=== PATIENT | male | born 1995 | race Caucasian/White ===

== ENCOUNTER 2016-04-02 01:52 | Emergency (ER) | payer BC ==
[2016-04-02] MEDS ORDERED: Ketorolac INJ* 60 MG/2 ML VIAL IM ONE (02:03)
[2016-04-02] MEDS ORDERED: Ibuprofen TAB* 400 MG PO ONE (02:37)
[2016-04-02 03:43] VITALS: BP 144/92
--- NOTE | 2016-04-02 07:37 | RAD ---
INDICATION: Dorsolateral foot and ankle pain 8 hours after a traumatic fall COMPARISON: None. TECHNIQUE: 3 views of the right ankle and 3 views of the right foot were obtained. FINDINGS: Overlying the anterior surface of the talus and/or distal fibula there is a lucent line abutting the anterior cortex. This line is not reproduced in other projections. Otherwise the well corticated bones exhibit normal alignment. Joint spaces appear maintained. IMPRESSION: A LUCENT LINE SEEN OVERLYING THE SUPERIOR ANTERIOR SURFACE OF THE TALUS MIGHT BE A NONDISPLACED FRACTURE. ALTERNATIVELY THIS LINE COULD SIMPLY BE A SKINFOLD OR THE DISTAL MARGIN OF THE NORMAL RIGHT FIBULA. If the patient's symptoms persist, follow-up imaging is recommended.
--- NOTE | 2016-06-01 23:13 | ED ---
I, Kaushal,Lesa, scribed for Dawit Rodgers MD on 04/02/16 at 0241 . Lower Extremity - HPI Summary HPI Summary: This 20 y/o male presents to ED via private transport for acute, throbbing right ankle pain. Pt was helping his friends and was climbing into a big pen when pt rolled his right ankle at 1700 PM. Weight bearing and ambulation make the pain worse. Elevation and ice make the pain better. He is currently denying any PMHx. - History of Current Complaint Chief Complaint: EDExtremityLower Stated Complaint: FALL/RIGHT ANKLE PAIN Time Seen by Provider: 04/02/16 01:59 Hx Obtained From: Patient Mechanism Of Injury: Blunt Trauma Onset of Pain: Immediate Pain Intensity: 6 Pain Scale Used: 0-10 Numeric Timing: Constant Location: Is Discrete @ - right ankle Character Of Pain: Throbbing Associated Signs And Symptoms: Positive: Negative Aggravating Factor(s): Ambulation, Weight Bearing Alleviating Factor(s): Rest, Elevation, Ice Able to Bear Weight: Yes - Allergies/Home Medications Allergies/Adverse Reactions: Allergies Allergy/AdvReac Type Severity Reaction Status Date / Time BEE STINGS Allergy Severe Swelling Uncoded 12/23/14 20:38 PMH/Surg Hx/FS Hx/Imm Hx Endocrine/Hematology History: Denies: Hx Diabetes, Hx Thyroid Disease Cardiovascular History: Denies: Hx Hypertension Respiratory History: Denies: Hx Asthma, Hx Chronic Obstructive Pulmonary Disease (COPD) GI History: Denies: Hx Ulcer Infectious Disease History: No Infectious Disease History: Denies: Hx Clostridium Difficile, Hx Hepatitis, Hx Human Immunodeficiency Virus (HIV), Hx of Known/Suspected MRSA, Hx Shingles, Hx Tuberculosis, Hx Known/ Suspected VRE, Hx Known/Suspected VRSA, History Other Infectious Disease, Traveled Outside the [place] in Last 30 Days - Family History Known Family History: Positive: Hypertension - Social History Alcohol Use: None Hx Substance Use: No Substance Use Type: Reports: None Hx Tobacco Use: Yes Smoking Status (MU): Light Every Day Tobacco Smoker Type: Smokeless Tobacco Review of Systems Negative: Fever Positive: Other - right ankle pain Negative: Anxious, Depressed All Other Systems Reviewed And Are Negative: Yes Physical Exam Triage Information Reviewed: Yes Vital Signs On Initial Exam: Initial Vitals Temp Pulse Resp BP Pulse Ox 98.0 F 90 16 170/99 98 04/02/16 02:05 04/02/16 02:05 04/02/16 02:05 04/02/16 02:05 04/02/16 02:05 Vital Signs Reviewed: Yes Diagnostics - Vital Signs Vital Signs Temp Pulse Resp BP Pulse Ox 04/02/16 02:05 98.0 F 90 16 170/99 98 - Laboratory Lab Statement: Any lab studies that have been ordered have been reviewed, and results considered in the medical decision making process. - Radiology Right foot Xray Interpretation: No Acute Changes Radiology Interpretation Completed By: ED Physician Right ankle Xray Interpretation: No Acute Changes Radiology Interpretation Completed By: ED Physician Lower Extremity Course/Dx - Diagnoses Provider Diagnoses: Right ankle sprain Discharge - Discharge Plan Condition: Stable Disposition: HOME Patient Education Materials: Ankle Sprain (ED), Crutch Instructions (ED) Referrals: Oral Sol MD [Primary Care Provider] - 2 Days The documentation as recorded by the Kaushal mustafa Soohyun accurately reflects the service I personally performed and the decisions made by , Dawit Rodgers MD.
== END 2016-04-02 03:05 | disposition home or self-care (01) ==
LOC: ED 01:52
DX: S93.401A Sprain of unspecified ligament of right ankle, initial encounter (principal); M25.571 Pain in right ankle and joints of right foot; F17.210 Nicotine dependence, cigarettes, uncomplicated; W19.XXXA Unspecified fall, initial encounter; Y93.9 Activity, unspecified; Y92.9 Unspecified place or not applicable
CPT/HCPCS: 99283; J1885

== ENCOUNTER 2017-11-23 13:42 | Emergency (ER) | payer BC ==
[2017-11-23 13:50] VITALS: BP 129/66
--- NOTE | 2017-11-23 14:07 | UC ---
Throat Pain/Nasal Wally HPI - HPI Summary HPI Summary: Patient c/o sore throat and cough for one week. He has been coughing night and day. Sometimes he has sweats at night as well as occasional chills. Cough is mostly dry with occasional scant production of phlegm. He does not have any medical history and has no PCP. He denies history of exposure to smoke/tobacco, denies history of asthma. - History of Current Complaint Chief Complaint: UCGeneralIllness Stated Complaint: SORE THROAT, AND COUGH Time Seen by Provider: 11/23/17 13:54 Hx Obtained From: Patient Onset/Duration: Gradual Onset, Lasting Days Severity: Moderate Pain Intensity: 7 Cough: Nonproductive Associated Signs & Symptoms: Positive: Nasal Discharge - Epiglottits Risk Factors Epiglottis Risk Factors: Negative - Allergies/Home Medications Allergies/Adverse Reactions: Allergies Allergy/AdvReac Type Severity Reaction Status Date / Time BEE STINGS Allergy Severe Swelling Uncoded 11/23/17 13:50 PMH/Surg Hx/FS Hx/Imm Hx Previously Healthy: Yes - Surgical History Surgical History: None - Family History Known Family History: Positive: Hypertension, Other - cancer - Social History Alcohol Use: Occasionally Substance Use Type: None Smoking Status (MU): Never Smoked Tobacco Type: Smokeless Tobacco Have You Smoked in the Last Year: No - Immunization History Vaccination Up to Date: Yes Review of Systems Constitutional: Chills ENT: Sore Throat Respiratory: Cough All Other Systems Reviewed And Are Negative: Yes Physical Exam Triage Information Reviewed: Yes Appearance: Well-Appearing, No Pain Distress, Well-Nourished Vital Signs: Initial Vital Signs Temp 98.3 F 11/23/17 13:46 Pulse 77 11/23/17 13:46 Resp 20 11/23/17 13:46 BP 129/66 11/23/17 13:46 Pulse Ox 97 11/23/17 13:46 Vital Signs Reviewed: Yes Eyes: Positive: Conjunctiva Clear ENT: Positive: Hearing grossly normal, Pharynx normal, TMs normal, Uvula midline Neck: Positive: Supple, Nontender, No Lymphadenopathy Respiratory: Positive: Chest non-tender, Lungs clear, Normal breath sounds, No respiratory distress Cardiovascular: Positive: RRR, No Murmur, Pulses Normal, Brisk Capillary Refill Abdomen Description: Positive: Nontender, No Organomegaly, Soft Bowel Sounds: Positive: Present Musculoskeletal: Positive: Strength Intact, ROM Intact, No Edema Skin Exam: Normal Throat Pain/Nasal Course/Dx - Course Course Of Treatment: 22 year old patient who presents with coughing, sore throat and chills for the past week. Rapid strep test was negative. Diagnosis of acute bronchitis, Start flovent and tessalon as indicated and referred to [facility] for PCP . - Differential Dx/Diagnosis Provider Diagnoses: Acute bronchitis Discharge - Sign-Out/Discharge Documenting (check all that apply): Patient Departure All imaging exams completed and their final reports reviewed: No Studies - Discharge Plan Condition: Stable Disposition: HOME Prescriptions: Benzonatate CAP* [Tessalon 100 MG CAP*] 100 mg PO TID 5 Days #15 cap Fluticasone DISKUS 100 MCG(NF) [Flovent Diskus 100 MCG(NF)] 1 puff INH BID 10 Days #1 diskus Patient Education Materials: Benzonatate (By mouth), Fluticasone (By breathing) , Acute Bronchitis (ED) Referrals: [facility] PHYSICIAN REFERRAL [Outside] No Primary Care Phys,NOPCP [Primary Care Provider] - - Billing Disposition and Condition Condition: STABLE Disposition: Home
== END 2017-11-23 14:50 | disposition home or self-care (01) ==
LOC: UCEAST 13:42
DX: J20.9 Acute bronchitis, unspecified (principal); Z91.030 Bee allergy status
CPT/HCPCS: 87651; 99212; G0463

== ENCOUNTER 2017-11-27 14:47 | Emergency (ER) | payer BC ==
[2017-11-27 15:16] VITALS: BP 145/91
--- NOTE | 2017-11-27 15:48 | UC ---
Respiratory Complaint HPI - HPI Summary HPI Summary: Patient presented with almost 2 weeks of progressively worsening cough, congestion, fatigue and scratchy throat. Cough is keeping him up at night. Patient is complaining of subjective fevers and chills. Was seen here 4 days ago and diagnosed with acute bronchitis, likely viral. Treated with benzonatate and nasal steroid. He states no improvement with these medications. - History of Current Complaint Chief Complaint: UCRespiratory Stated Complaint: COUGH Time Seen by Provider: 11/27/17 15:25 Hx Obtained From: Patient Onset/Duration: Gradual Onset, Lasting Days, Still Present Timing: Constant Severity Initially: Moderate Severity Currently: Moderate Pain Intensity: 5 Pain Scale Used: 0-10 Numeric Character: Cough: Productive Aggravating Factors: Deep Breaths, Recumbent Position Alleviating Factors: Nothing Associated Signs And Symptoms: Positive: Fever, Chills, URI, Nasal Congestion. Negative: Dyspnea - Allergies/Home Medications Allergies/Adverse Reactions: Allergies Allergy/AdvReac Type Severity Reaction Status Date / Time BEE STINGS Allergy Severe Swelling Uncoded 11/23/17 13:50 PMH/Surg Hx/FS Hx/Imm Hx Previously Healthy: Yes - Surgical History Surgical History: None - Family History Known Family History: Positive: Hypertension, Other - cancer - Social History Alcohol Use: Occasionally Substance Use Type: None Smoking Status (MU): Never Smoked Tobacco Type: Smokeless Tobacco Have You Smoked in the Last Year: No - Immunization History Vaccination Up to Date: Yes Review of Systems Constitutional: Fever, Chills, Fatigue ENT: Sore Throat, Nasal Discharge Respiratory: Cough Cardiovascular: Negative Gastrointestinal: Negative Neurological: Headache All Other Systems Reviewed And Are Negative: Yes Physical Exam Triage Information Reviewed: Yes Appearance: No Pain Distress, Well-Nourished, Ill-Appearing - MILD Vital Signs: Initial Vital Signs Temp 99.6 F 11/27/17 15:11 Pulse 87 11/27/17 15:11 Resp 17 11/27/17 15:11 BP 145/91 11/27/17 15:11 Pulse Ox 97 11/27/17 15:11 Eyes: Positive: Conjunctiva Clear ENT: Positive: Hearing grossly normal, Pharynx normal, Nasal congestion, TMs normal Neck: Positive: Supple, Nontender, No Lymphadenopathy Respiratory Exam: Normal Cardiovascular Exam: Normal Abdomen Description: Positive: Soft Musculoskeletal: Positive: No Edema Neurological: Positive: Alert Psychological: Positive: Age Appropriate Behavior Skin: Negative: rashes UC Diagnostic Evaluation - Laboratory O2 Sat by Pulse Oximetry: 97 Respiratory Course/Dx - Differential Dx/Diagnosis Provider Diagnoses: ACUTE BRONCHITIS Discharge - Sign-Out/Discharge Documenting (check all that apply): Patient Departure All imaging exams completed and their final reports reviewed: No Studies - Discharge Plan Condition: Stable Disposition: HOME Prescriptions: Azithromycin 500 mg PO DAILY #5 tab Codeine Phosphate/Guaifenesin [Codeine-Guaifen 10-100 mg/5 ml] 5 - 10 ml PO Q6H PRN #150 ml MDD 40ML PRN Reason: Cough predniSONE TAB* [Deltasone 20 MG TAB*] 40 mg PO DAILY #10 tab Patient Education Materials: Acute Bronchitis (ED) Forms: *Work Release Referrals: No Primary Care Phys,NOPCP [Primary Care Provider] - Additional Instructions: YOUR SYMPTOMS MAY BE VIRALLY MEDIATED BUT GIVEN THE LENGTH OF TIME YOU HAVE BEEN ILL WE WILL COVER YOU WITH ANTIBIOTICS. IF YOU START THE MEDICINE BE SURE TO TAKE IT FOR THE FULL COURSE. REST, HYDRATE, OTC MEDS NEEDED. WILL ALSO TREAT WITH PREDNISONE TO HELP WITH AIRWAY INFLAMMATION AND COUGH MEDICINE. SEEK FOLLOW-UP WITH YOUR PCP IF YOU ARE NOT IMPROVING OVER THE NEXT 1-2 WEEKS. CALL THE NUMBER BELOW FOR ASSISTANCE IN ESTABLISHING WITH A PCP An additional resource available to assist in finding the appropriate physician for your health care needs is the [facility] ([facility]). You may contact them by calling [phone]. - Billing Disposition and Condition Condition: STABLE Disposition: Home
== END 2017-11-27 16:05 | disposition home or self-care (01) ==
LOC: UCEAST 14:47
DX: J20.9 Acute bronchitis, unspecified (principal); Z91.030 Bee allergy status
CPT/HCPCS: 99212; G0463

== ENCOUNTER 2017-11-27 22:34 | Emergency (ER) | payer BC ==
[2017-11-27] MEDS ORDERED: Albuterol 2.5 MG/3 ML NEB.SOL* (0.083%) INH ONE (23:31)
[2017-11-27] MEDS ORDERED: Acetaminophen TAB* 325 MG PO ONE (23:31)
[2017-11-27] MEDS ORDERED: Albuterol/Ipratropium NEB.SOL* Albuterol 2.5 MG/Ipratropium 0.5 MG 3 ML INH ONE (23:31)
--- NOTE | 2017-11-27 23:32 | ED ---
Respiratory - HPI Summary HPI Summary: This is ramsey Riojas documenting for attending Dr. Shasha Magallon MD. This patient is a 22 year old M presenting to [facility] accompanied by two people with a chief complaint of worsening URI since 5 days ago. The patient rates the pain 8/10 in severity. Patient reports cough, vomiting, diaphoresis, SOB, and intermittent fevers. Pt went to on 11/23/17 for Bronchitis and was given Azithromycin. No CXR was taken at . 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 No PMHx asthma. SHx nonsmoker. I, Dr. Magallon, personally performed the services described in this documentation as scribed in my presence and it is both accurate and complete. - History of Current Complaint Chief Complaint: EDUpperRespComplaint Stated Complaint: HEADACHE/VOMITING/NAUSEA Time Seen by Provider: 11/27/17 23:12 Hx Obtained From: Patient Onset/Duration: Sudden Onset, Lasting Days - 5 Timing: Constant Initial Severity: Moderate Current Severity: Moderate Pain Intensity: 8 Character: Cough (Nonproductive) Associated Signs and Symptoms: Fever, SOB, Diaphoresis - Allergy/Home Medications Allergies/Adverse Reactions: Allergies Allergy/AdvReac Type Severity Reaction Status Date / Time BEE STINGS Allergy Severe Swelling Uncoded 11/27/17 22:44 PMH/Surg Hx/FS Hx/Imm Hx Endocrine/Hematology History: Denies: Hx Diabetes, Hx Thyroid Disease Cardiovascular History: Denies: Hx Hypertension Respiratory History: Denies: Hx Asthma, Hx Chronic Obstructive Pulmonary Disease (COPD) GI History: Denies: Hx Ulcer Infectious Disease History: No Infectious Disease History: Denies: Hx Clostridium Difficile, Hx Hepatitis, Hx Human Immunodeficiency Virus (HIV), Hx of Known/Suspected MRSA, Hx Shingles, Hx Tuberculosis, Hx Known/ Suspected VRE, Hx Known/Suspected VRSA, History Other Infectious Disease, Traveled Outside the [place] in Last 30 Days - Family History Known Family History: Positive: Hypertension, Other - cancer - Social History Alcohol Use: Occasionally Hx Substance Use: No Substance Use Type: Reports: None Hx Tobacco Use: Yes Smoking Status (MU): Never Smoked Tobacco Type: Smokeless Tobacco Have You Smoked in the Last Year: No Review of Systems Positive: Fever, Skin Diaphoresis Positive: Shortness Of Breath, Cough Positive: Vomiting All Other Systems Reviewed And Are Negative: Yes Physical Exam - Summary Physical Exam Summary: GENERAL: Patient is a well-developed and nourished male who is lying comfortable in the stretcher. Patient is not in any acute respiratory distress. HEAD AND FACE: No signs of trauma. No ecchymosis, hematomas or skull depressions. No sinus tenderness. EYES: PERRLA, EOMI x 2, No injected conjunctiva, no nystagmus. EARS: Hearing grossly intact. Ear canals and tympanic membranes are within normal limits. MOUTH: Oropharynx within normal limits. NECK: Supple, trachea is midline, no adenopathy, no JVD, no carotid bruit, no c- spine tenderness, neck with full ROM. CHEST: Symmetric, no tenderness at palpation LUNGS: Clear to auscultation bilaterally. No wheezing or crackles. CVS: Regular rate and rhythm, S1 and S2 present, no murmurs or gallops appreciated. ABDOMEN: Soft, non-tender. No signs of distention. No rebound no guarding, and no masses palpated. Bowel sounds are normal. EXTREMITIES: FROM in all major joints, no edema, no cyanosis or clubbing. NEURO: Alert and oriented x 3. No acute neurological deficits. Speech is normal and follows commands. SKIN: Dry and warm Triage Information Reviewed: Yes Vital Signs On Initial Exam: Initial Vitals Temp Pulse Resp BP Pulse Ox 99.7 F 105 16 153/78 95 11/27/17 22:35 11/27/17 22:35 11/27/17 22:35 11/27/17 22:35 11/27/17 22:35 Vital Signs Reviewed: Yes Diagnostics - Vital Signs Vital Signs Temp Pulse Resp BP Pulse Ox 11/27/17 22:35 99.7 F 105 16 153/78 95 - Laboratory Result Diagrams: 11/27/17 23:42 11/27/17 23:42 Lab Statement: Any lab studies that have been ordered have been reviewed, and results considered in the medical decision making process. - Radiology CXR Radiology Interpretation Completed By: ED Physician - Right lower lobe PNA. Pending official report. Re-Evaluation - Re-Evaluation First Eval Re-Evaluation Time: 01:00 Change: Improved Comment: Patient is feeling better and his breathing is improved. Patient's O2 sat is 95-96%. Disposition - Course Course Of Treatment: This patient is a 22 year old M presenting to [facility] accompanied by two people with a chief complaint of worsening URI since 5 days ago. The patient rates the pain 8/10 in severity. Patient reports cough, vomiting, diaphoresis, SOB, and intermittent fevers. Pt went to on 11/23/17 for Bronchitis and was given Azithromycin. No CXR was taken at . 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 No PMHx asthma. SHx nonsmoker. CXR reveals, per ED physician, right lower lobe PNA, pending official report. In the ED course the patient was given acetaminophen, albuterol, and IV fluids. Patient will be discharged with prescription for Albuterol, Ibuprofen, and Levoflaxin and follow up from his PCP within 2 days. The patient is agreeable with this plan. - Diagnoses Provider Diagnoses: Right lower lobe pneumonia Discharge - Sign-Out/Discharge Documenting (check all that apply): Patient Departure - discharge - Discharge Plan Condition: Stable Disposition: HOME Prescriptions: Albuterol HFA INHALER* [Ventolin HFA Inhaler*] 2 puff INH Q6H PRN #1 mdi PRN Reason: Shortness Of Breath Ibuprofen TAB* [Motrin TAB* 800 MG] 800 mg PO Q6H PRN #30 tab PRN Reason: Fever/Pain Levofloxacin TAB* [Levaquin TAB*] 750 mg PO DAILY #10 tab Patient Education Materials: Pneumonia (ED) Forms: *Work Release Referrals: [facility] [facility] [Outside] - 2 Days Additional Instructions: RETURN TO THE EMERGENCY DEPARTMENT FOR CHANGING OR WORSENING SYMPTOMS. FOLLOW UP WITH PCP IN 1-2 DAYS. - Attestation Statements Document Initiated by Scribe: Yes Documenting Scribe: Babak Riojas Provider For Whom Scribe is Documenting (Include Credential): Shasha Magallon MD Scribe Attestation: Babak Moreno, scribed for Shasha Magallon MD on 11/28/17 at 0108.
[2017-11-27] MEDS ORDERED: Ketorolac INJ* 30 MG/ML 1 ML VIAL IV PUSH ONE (23:34)
[2017-11-27] MEDS ORDERED: NS 0.9% 1000 ML* 1,000 ML IV ONE (23:34)
[2017-11-27 23:54] LABS: ABS Basophils 0 10^3/ul (0-0.2); ABS Eosinophils 0.2 10^3/ul (0-0.6); ABS Lymphocytes 1.2 10^3/ul (1.0-4.8); ABS Neutrophils 5.7 10^3/ul (1.5-7.7); ABS Nucleated RBC 0 10^3/ul; Eosinophil % 2.5 % (0-6); Hematocrit 39 % (42-52); Hemoglobin 13.5 g/dl (14.0-18.0); Lymphocyte % 14.9 % (25-47); Mean Corpuscular HGB Conc 35 g/dl (31-36); Mean Corpuscular Hemoglobin 31 pg (27-31); Mean Corpuscular Volume 89 fL (80-94); Mean Platelet Volume 8.5 um3 (7.4-10.4); Nucleated Red Blood Cells % 0.1; Platelet Count 243 10^3/ul (150-450); Red Blood Count 4.35 10^6/ul (4.00-5.40); Red Cell Distribution Width 13 % (10.5-15); White Blood Count 8.1 10^3/ul (3.5-10.8)
[2017-11-28 00:08] LABS: EGFR Non-African American 114.3 (>60)
[2017-11-28] MEDS ORDERED: Levofloxacin TAB* 250 MG PO ONE (00:28)
[2017-11-28] MEDS ORDERED: NS 0.9% 1000 ML* 2,000 ML IV ONE (00:30)
[2017-11-28 01:28] VITALS: BP 143/68
--- NOTE | 2017-11-28 07:40 | RAD ---
HISTORY: cough COMPARISONS: None VIEWS: 1: frontal AP view of the chest at 12:15 AM FINDINGS: LINES AND TUBES: None. CARDIOMEDIASTINAL SILHOUETTE: The cardiomediastinal silhouette is normal for portable technique. PLEURA: The costophrenic angles are sharp. No pleural abnormalities are noted. LUNG PARENCHYMA: There is confluent alveolar opacification of the right lower lung field at the cardiophrenic angle. ABDOMEN: The upper abdomen is clear. There is no subphrenic gas. BONES AND SOFT TISSUES: No bone or soft tissue abnormalities are noted. IMPRESSION: RIGHT LOWER LUNG CONSOLIDATION. R0
== END 2017-11-28 01:15 | disposition home or self-care (01) ==
LOC: ED 22:34
DX: J18.9 Pneumonia, unspecified organism (principal); R50.9 Fever, unspecified; R06.02 Shortness of breath; R61 Generalized hyperhidrosis
CPT/HCPCS: 36415; 71045; 80053; 85025; 87040; 96374; 99284; A9270-GY; J1885

== ENCOUNTER 2018-03-03 21:09 | Emergency (ER) | payer BC ==
[2018-03-03 21:21] VITALS: BP 172/86
[2018-03-03] MEDS ORDERED: DOXYcycline CAP(*) 100 MG PO ONE (21:22)
--- NOTE | 2018-03-03 21:23 | UC ---
Skin Complaint HPI - HPI Summary HPI Summary: 22-year-old male presents with onset of erythematous, pruritic rash to his right lateral abdominal wall today. Denies fever, chills, known tick or insect bites, flulike symptoms, joint pain or swelling, myalgias, changes in diet, soaps, shampoos, detergents, or contact with known environmental irritants. - History of Current Complaint Time Seen by Provider: 03/03/18 21:09 Stated Complaint: SOFT TISSUE Hx Obtained From: Patient - Allergy/Home Medications Allergies/Adverse Reactions: Allergies Allergy/AdvReac Type Severity Reaction Status Date / Time bee venom protein (honey bee) Allergy Severe Swelling Verified 03/03/18 21:20 Home Medications: Home Medications diPHENhydraMINE PO* [Benadryl PO 25 MG TAB*] 50 mg PO ONCE PRN 03/03/18 [ History Confirmed 03/03/18] PMH/Surg Hx/FS Hx/Imm Hx Previously Healthy: Yes - Denies significant PMH - Surgical History Surgical History: None - Family History Known Family History: Positive: Hypertension, Other - cancer - Social History Occupation: Employed Full-time Lives: With Family Alcohol Use: Occasionally Substance Use Type: None Smoking Status (MU): Never Smoked Tobacco Type: Smokeless Tobacco Have You Smoked in the Last Year: No - Immunization History Vaccination Up to Date: Yes Review of Systems All Other Systems Reviewed And Are Negative: Yes Constitutional: Negative: Fever, Chills Skin: Positive: Other - See HPI ENT: Negative: Sore Throat, Ear Ache, Nasal Discharge, Sinus Congestion, Sinus Pain/Tenderness Respiratory: Negative: Shortness Of Breath, Cough Cardiovascular: Negative: Palpitations, Chest Pain Gastrointestinal: Negative: Abdominal Pain, Vomiting, Diarrhea, Nausea Genitourinary: Positive: Negative Musculoskeletal: Negative: Arthralgia, Myalgia Neurological: Positive: Negative Physical Exam - Summary Physical Exam Summary: GENERAL APPEARANCE: Well developed, well nourished, alert and cooperative, and appears to be in no acute distress. NECK: Neck supple, non-tender without lymphadenopathy. CARDIAC: Normal S1 and S2. No S3, S4 or murmurs. Rhythm is regular. There is no peripheral edema, cyanosis or pallor. Extremities are warm and well perfused. Capillary refill is less than 2 seconds. LUNGS: Clear to auscultation without rales, rhonchi, wheezing or diminished breath sounds. ABDOMEN: Positive bowel sounds. Soft, nondistended, nontender. No guarding or rebound. No masses or hepatosplenomegally. MUSKULOSKELETAL: ROM intact to all extremities. No joint erythema or tenderness. Normal muscular development. Normal gait. SKIN: There is an oval shaped area of erythema measuring 7 cm x 4.5 cm with a bull's-eye appearance to his right lateral abdominal wall. He has a second area of erythema posterior to the aforementioned lesion that is triangular in shape and measuring 6 cm x 3 cm with 3 small vesicular-like lesions within the erythematous field. There is no induration or fluctuance noted. Triage Information Reviewed: Yes Vital Signs Reviewed: Yes Course/Dx - Course Course Of Treatment: 22-year-old male presents with onset of erythematous, pruritic rash to his right lateral abdominal wall today. Denies fever, chills, known tick or insect bites, flulike symptoms, joint pain or swelling, myalgias, changes in diet, soaps, shampoos, detergents, or contact with known environmental irritants. Afebrile. Hypertensive otherwise vital signs within normal parameters. Exam reveals an oval shaped area of erythema measuring 7 cm x 4.5 cm with a bull's-eye appearance to his right lateral abdominal wall. He has a second area of erythema posterior to the aforementioned lesion that is triangular in shape and measuring 6 cm x 3 cm with 3 small vesicular-like lesions within the erythematous field. Exam is otherwise unremarkable. With no known tick bite or other symptoms I will treat him for a cellulitis however because of the suspicious appearance of the one lesion for erythema migrans they have chosen to treat him with doxycycline 100 mg twice a day 2 weeks in order to cover for Lyme disease as well. I have counseled the patient on the importance that he complete the entire 2 weeks in order to be adequately treated for possible Lyme. He is to follow-up with his primary care provider for the hypertension and a reevaluation of his symptoms. Warning symptoms were reviewed with the patient. Verbalizes understanding and agrees with plan of care. - Differential Diagnoses - Skin Complaint Differential Diagnoses: Abscess, Local Allergic Reaction, MRSA, Tinea, Other - Erythema migrans - Diagnoses Provider Diagnosis: Abdominal wall cellulitis, Elevated blood pressure reading Discharge - Sign-Out/Discharge Documenting (check all that apply): Patient Departure All imaging exams completed and their final reports reviewed: No Studies - Discharge Plan Condition: Stable Disposition: HOME Prescriptions: Doxycycline Hyclate 100 mg PO BID 14 Days #28 tablet Patient Education Materials: Lyme Disease (ED), Cellulitis (ED) Referrals: No Primary Care Phys,NOPCP [Primary Care Provider] - Additional Instructions: I am treating you for a an infection of the skin called cellulitis however the lesion is suspicious for lyme disease therefore I am going to treat you with an antibiotic that will cover you for both conditions. Take doxycycline 1 tab twice a day for 14 days. It is very important that you finish the entire 14 day course to adequately treat for lyme disease. We gave you your first dose in the clinic. Your blood pressure was very elevated in the clinic today. I recommend that you follow up with your primary care provider within 1 week to have this rechecked. Seek immediate medical attention in the emergency room if you develop fever greater than 100.5 F, have increased redness, swelling, or pain, or have any worsening of symptoms. - Billing Disposition and Condition Condition: STABLE Disposition: Home
== END 2018-03-03 21:40 | disposition home or self-care (01) ==
LOC: UCEAST 21:09
DX: L03.311 Cellulitis of abdominal wall (principal); R03.0 Elevated blood-pressure reading, without diagnosis of hypertension; Z91.030 Bee allergy status
CPT/HCPCS: 99212; A9270-GY; G0463